=== PATIENT | female | born 1995 | race Caucasian/White ===

== ENCOUNTER 2021-05-15 08:52 | Observation (INO) | payer OTHER ==
[2021-05-15 09:27] VITALS: BMI 19.1
[2021-05-15 11:04] LABS: BASO % 0.8 % (0-2.0); EOS % 0.2 % (0-4.5); HEMATOCRIT 33.6 % (32.4-45.2); HEMOGLOBIN 11.9 GM/dL (10.7-15.3); LYMPH % 13.3 % (8-40); MCHC 35.4 g/dl (32.0-36.0); MEAN CELL VOLUME 90.4 fl (80-96); MEAN PLT VOLUME 8.9 fl (7.5-11.1); MONO % 5.1 % (3.8-10.2); NEUT % 80.6 % (42.8-82.8); PLATELET COUNT 252 10^3/uL (134-434); RBC 3.72 M/mm3 (3.60-5.2); RDW 13.6 % (11.6-15.6); WHITE BLOOD COUNT 6.6 K/mm3 (4.0-10.0)
[2021-05-15] MEDS ORDERED: ONDANSETRON 4 MG/2 ML VIAL IVPUSH ONE (11:07)
[2021-05-15] MEDS ORDERED: SODIUM CHLORIDE 1,000 ML IV STA (11:07)
[2021-05-15 11:08] LABS: CALCIUM 9.3 mg/dL (8.5-10.1)
[2021-05-15 11:09] LABS: ALBUMIN 4.2 g/dl (3.4-5.0); BLOOD UREA NITROGEN 10.4 mg/dL (7-18); MAGNESIUM 2.4 mg/dL (1.8-2.4)
[2021-05-15 11:11] LABS: CREATININE 0.8 mg/dL (0.55-1.3)
[2021-05-15] MEDS ORDERED: ONDANSETRON 4 MG/2 ML VIAL ONE ×3 (11:12→20:23)
[2021-05-15 11:13] LABS: BILIRUBIN,TOTAL 1.4 mg/dL (0.2-1); TOT PROT 7.2 g/dl (6.4-8.2)
[2021-05-15 15:45] VITALS: TEMP 98.7
[2021-05-15] MEDS ORDERED: LACTATED RINGERS SOLUTION 1,000 ML/1,000 ML INFUS.BAG IV SCH (15:45)
[2021-05-15] MEDS: ONDANSETRON 4 MG/2 ML VIAL IVPUSH PRN ×2 (18:28→20:28)
[2021-05-15 18:41] LABS: EPI CELLS 17 /uL (0-25.1); HYALINE CASTS 3 /uL (0-3.1); PH,URINE 5.5 (5.0-8.0); URINE APPEARANCE CLEAR; URINE BACTERIA 126 /uL (0-1359); URINE BILIRUBIN NEGATIVE (NEGATIVE); URINE COLOR YELLOW; URINE GLUCOSE (UA) NEGATIVE (NEGATIVE); URINE KETONE 1+ (NEGATIVE); URINE LEUK ESTERASE NEGATIVE (NEGATIVE); URINE NITRITE NEGATIVE (NEGATIVE); URINE PROTEIN NEGATIVE (NEGATIVE); URINE RBC 32 /uL (0-23.9); URINE UROBILINOGEN 0.2 mg/dL (0.2-1.0); URINE WBC 24 /uL (0-25.8)
[2021-05-15 19:06] LABS: COCAINE, UR NEGATIVE (NEGATIVE); METHADONE, UR NEGATIVE (NEGATIVE); OPIATES, URI NEGATIVE (NEGATIVE); PHENCYCLIDINE,URINE NEGATIVE (NEGATIVE); URINE AMPHETAMINES NEGATIVE (NEGATIVE); URINE BARBITURATES NEGATIVE (NEGATIVE); URINE BENZODIAZEPINES NEGATIVE (NEGATIVE)
[2021-05-15 20:22] VITALS: BP 115/77; PULSE 57
[2021-05-16 13:07] LABS: SARS-CoV-2 NAA Not Detected (Not Detected)
== END 2021-05-16 00:44 | disposition left against medical advice (07) ==
LOC: JER 08:52 → JERBED 15:42
PROVIDERS: ADMIT Internal Medicine; ATTEND Internal Medicine
PROC: 3E033GC Introduction of Other Therapeutic Substance into Peripheral Vein, Percutaneous Approach (ICD-10-PCS; principal; 2021-05-15)
PROC: 3E0337Z Introduction of Electrolytic and Water Balance Substance into Peripheral Vein, Percutaneous Approach (ICD-10-PCS; 2021-05-15)
DX: R55 Syncope and collapse (principal); R11.10 Vomiting, unspecified; R07.89 Other chest pain
CPT/HCPCS: 36415; 71045-TC-FY; 80053; 80307; 81003; 83690; 83735; 84300; 84443; 84484; 84703; 85025; 87086; 87804; 93005; 93010; 96361; 96365; 96376; 99285-25; C9803; G0378; U0003; U0005

== ENCOUNTER 2021-07-29 12:43 | Emergency (ER) | payer OTHER ==
[2021-07-29 12:54] VITALS: BP 119/71; PULSE 93; TEMP 98.2; BMI 18.3
[2021-07-29] MEDS ORDERED: ONDANSETRON *ODT* 4 MG TABLET SL ONE (13:01)
[2021-07-29] MEDS ORDERED: ONDANSETRON *ODT* 4 MG TABLET ONE (13:11)
[2021-07-29] MEDS ORDERED: SODIUM CHLORIDE 0.9% 500 ML INFUS.BAG IV ONE ×2 (13:26→15:19)
[2021-07-29 14:03] LABS: HEMATOCRIT 36.8 % (32.4-45.2); MCH 31.7 pg (25.7-33.7); MCHC 35.4 g/dl (32.0-36.0); MEAN CELL VOLUME 89.2 fl (80-96); MEAN PLT VOLUME 8.7 fl (7.5-11.1); PLATELET COUNT 293.1 10^3/uL (134-434); RBC 4.12 10^6/uL (3.60-5.2); RDW 13.2 % (11.6-15.6); WHITE BLOOD COUNT 5.8 10^3/uL (4.0-10.8)
[2021-07-29 14:05] LABS: ALBUMIN 4.4 g/dl (3.4-5.0); BILIRUBIN,TOTAL 0.8 mg/dl (0.2-1); CALCIUM 8.6 mg/dl (8.5-10); CREATININE 0.7 mg/dl (0.55-1.3); MAGNESIUM 1.9 mg/dL (1.8-2.4); TOT PROT 7.6 g/dl (6.4-8.2)
[2021-07-29] MEDS ORDERED: METOCLOPRAMIDE HCL INJECTION 10 MG/2 ML VIAL IVPUSH ONE (15:20)
[2021-07-29 15:34] LABS: ANISOCYTOSIS FEW; PLATELET ESTIMATE ADEQUATE
== END 2021-07-29 16:25 | disposition home or self-care (01) ==
LOC: FER 12:43
PROC: 3E033NZ Introduction of Analgesics, Hypnotics, Sedatives into Peripheral Vein, Percutaneous Approach (ICD-10-PCS; principal; 2021-07-29)
DX: B34.9 Viral infection, unspecified (principal)
CPT/HCPCS: 0241U-QW; 36415; 80053; 83735; 84703; 85025; 93005; 99284-25; Q0162